=== PATIENT | male | born 1945 | race Two or more races ===

== ENCOUNTER 2020-06-18 10:41 | Outpatient (CLI) | payer OTHER | END 2020-06-18 10:59 | disposition HB | LOC: MRI 10:41 → NUCLEAR 11:00 | DX: R05 Cough (principal); K21.9 Gastro-esophageal reflux disease without esophagitis; E78.2 Mixed hyperlipidemia; N39.3 Stress incontinence (female) (male); M54.42 Lumbago with sciatica, left side; M54.41 Lumbago with sciatica, right side; R26.89 Other abnormalities of gait and mobility; G47.33 Obstructive sleep apnea (adult) (pediatric); Z68.32 Body mass index [BMI] 32.0-32.9, adult ==

== ENCOUNTER 2020-06-18 11:01 | Outpatient (CLI) | payer OTHER | END 2020-06-18 11:06 | disposition home or self-care (01) | LOC: NUCLEAR 11:01 | PROVIDERS: ATTEND Internal Medicine | DX: I70.213 Atherosclerosis of native arteries of extremities with intermittent claudication, bilateral legs (principal) ==

== ENCOUNTER 2020-07-31 10:43 | Outpatient (CLI) | payer OTHER | END 2020-07-31 10:45 | disposition home or self-care (01) | LOC: NUCLEAR 10:43 | PROVIDERS: ATTEND Internal Medicine | DX: E78.2 Mixed hyperlipidemia (principal); I83.893 Varicose veins of bilateral lower extremities with other complications; I87.2 Venous insufficiency (chronic) (peripheral) ==

== ENCOUNTER 2021-06-26 10:58 | Outpatient (CLI) | payer OTHER | END 2021-06-26 11:06 | disposition home or self-care (01) | LOC: RAD 10:58 | PROVIDERS: ATTEND Internal Medicine | DX: R05.9 Cough, unspecified (principal); M54.42 Lumbago with sciatica, left side; M54.41 Lumbago with sciatica, right side ==

== ENCOUNTER 2021-07-05 10:26 | Outpatient (CLI) | payer OTHER | END 2021-07-05 10:31 | disposition home or self-care (01) | LOC: TOM 10:26 | PROVIDERS: ATTEND Internal Medicine | DX: M54.42 Lumbago with sciatica, left side (principal); M54.41 Lumbago with sciatica, right side; M54.16 Radiculopathy, lumbar region ==

== ENCOUNTER 2021-09-05 12:15 | Outpatient (CLI) | payer OTHER | END 2021-09-05 12:21 | disposition home or self-care (01) | LOC: TOM 12:15 | PROVIDERS: ATTEND Physical Medicine & Rehabilitation | DX: G81.94 Hemiplegia, unspecified affecting left nondominant side (principal); M54.2 Cervicalgia ==

== ENCOUNTER 2024-04-13 05:22 | Inpatient (IN) | payer OTHER ==
[2024-04-13] VITALS (8 sets, daily range): BP systolic 81–157; BP diastolic 40–76; O2SAT 92–100
[~2024-04-13] VITALS: Ht 162.6 cm; Wt 72.6 kg
--- NOTE | 2024-04-13 05:33 | NUR ---
SE RECIBE PTE ALERTA ACOMPANADO DE FAMILIAR LA CUAL REFIERE TRAER A PTE POR DIFICULTAD RESPIRATORIA Y CAIDA DESDE PHYLLIS. SE MIDEN S/V A PTE, SE REALIZA EKG. PTE SE OBSERVA CON RESPIRACIONES ABDOMINALES CON CN A 3LTS COLOCADA POR PERSONAL PARAMEDICO. PTE SE UBICA EN UNIDAD DE CRITICO Y SE CONECTA A MONITOR CARDIACO.
[2024-04-13] MEDS ORDERED: ALBUTEROL SULFATE 3 ML/2.5 MG AMPUL.NEB IH ONE (05:49)
[2024-04-13] MEDS ORDERED: METHYLPREDNISOLONE SOD SUCC 125 MG VIAL ONE (05:49)
[2024-04-13] MEDS ORDERED: METHYLPREDNISOLONE SOD SUCC 125 MG VIAL IV STA (05:54)
[2024-04-13] MEDS ORDERED: ALBUTEROL SULFATE 3 ML/2.5 MG AMPUL.NEB IH SCH ×2 (06:00→09:00)
[2024-04-13] MEDS ORDERED: CEFTRIAXONE SODIUM 1,000 MG VIAL IV STA (06:02)
[2024-04-13] MEDS ORDERED: AZITHROMYCIN 500 MG VIAL IV STA (06:02)
[2024-04-13] MEDS ORDERED: CEFTRIAXONE SODIUM 1,000 MG VIAL ONE (06:06)
[2024-04-13] MEDS ORDERED: AZITHROMYCIN 500 MG VIAL IV ONE (06:06)
[2024-04-13 06:23] LABS: ABG PH 7.443 (7.35-7.45); ABG PO2 93.4 mmHg (80-100); ABG pCO2 41.9 mmHg (35-45); BASE EXCESS 3.6 mmol/l; SaO2 97.6 %; Tco2 29.3 mmol/l; allen test SATISFACTORY; o2 32 %; puncture site RADIAL LEFT
--- NOTE | 2024-04-13 06:32 | NUR ---
SE RECIBE MASCULINO ALERTA A CAMA #3, SE CONECTA A MONITOR CARDIACO Y OXIMETRIA DE PULSO CONTINUA. SE OBSERVA MASCULINO CON RESPIRACIONES LABORIOSAS Y UTILIZANDO MUSCULOS ACCESORIO, SE COLOCA C/N 3 LT/MIN. VENOPUNCION X2 LT/RT ARM PATENTES JOSE ROBERTO DE EDEMA Y ERITEMA BAJANDO IV FLUIDS POR IV PUMP. SE ADMINISTRAN MEDICAMENTOS [facility] ORDEN MEDICA Y BAJO MEDIDAS ASEPTICAS. FAMILIAR VERBALIZA QUE NO DESEA QUE PTE SE ENTUBE. ORIENTA A FEMINA Y LA MISMA FIRMA DIRECTRICES ANTICIPADAS, SE DOCUMENTA EN SISTEMA. SE COLOCA CARD BAJO MEDIDAS ASEPTICAS Y ESTERILES BAJANDO A GRVEDAD, SE OBSERVA ORINA AMARILLO OSCURO. PERSONAL DE TERAPIA RESPIRATORIA ADMINSITR MEDICAMENTOS [facility] ORDEN MEDICA.
[2024-04-13 06:47] LABS: HEMATOCRIT 32.5 % (39.0-48.0); MEAN CELL VOLUME 101.3 fL (80.0-100.00); MEAN CORPUSCULAR HEMOGLOBIN 34.2 pg (27.00-32.0); MEAN CORPUSCULAR HGB CONC 33.7 g/dl (32.0-36.0); PLATELET COUNT 255 K/uL (150-450); RED BLOOD COUNT 3.21 M/uL (4.00-6.00); RED CELL DISTRIBUTION WIDTH 14.7 % (11.5-14.5)
[2024-04-13 06:48] LABS: INR 1.34; PARTIAL THROMBOPLASTIN TIME 24.5 SECONDS (22.0-34.0); PROTHROMBIN TIME 14.3 SECONDS (9.0-11.5)
[2024-04-13 06:56] LABS: ALBUMIN 1.8 gm/dL (3.4-5.0); BILIRUBIN TOTAL 1.03 mg/dL (0.3-1.2); CALCIUM 10.3 mg/dL (8.5-10.1); CREATININE SERUM 1.13 mg/dL (0.70-1.30); GFR 62.44; GLOBULINA 9.9 G/DL (2.4-3.5); POTASSIUM 3.47 mEq/L (3.5-5.1)
[2024-04-13 06:57] LABS: TOTAL PROTEIN 11.7 gm/dL (6.4-8.2)
--- NOTE | 2024-04-13 07:29 | NUR ---
SE RECIBE PACIENTE EN ICU-2 POR LILLY FRIEDMAN, CONECTADO A MONITOR CARDIACO Y OXIMETRIA
[2024-04-13] MEDS ORDERED: LEVALBUTEROL HCL 0.63 MG/3 ML SOLUTION IH ONE (07:57)
[2024-04-13 08:49] LABS: URINE APPEARANCE Cloudy; URINE BILIRRUBIN Small (NEGATIVE); URINE BLOOD Large; URINE COLOR Dark Yellow; URINE GLUCOSE Negative (NEGATIVE); URINE KETONE Negative (NEGATIVE); URINE LEUKOCYTE Moderate; URINE NITRATE Positive
[2024-04-13 08:52] LABS: URINE BACTERIA 5720.9 uL (0.0-1933); URINE CAST 17.97 uL (0.0-1.40); URINE EPITHELIAL CELLS 15.3 uL (0.0-38.8); URINE RBC 135.9 uL (0.0-20.8); URINE WBC 1324.5 uL (0.0-23.2)
--- NOTE | 2024-04-13 08:52 | NUR ---
8:20AM SE RECIBE PACIENTE MASCULINO DE 78 ANOS D EEDAD UBICADA EN UNIDAD DE CRITICO EN CAMA NESSA #3 CON BARANDAS ELAVADAS Y CABECERA A 45 GRADOS. PACIENTE AL MOMENTO ALERTA, CONCIENTE Y CONFUSO AL MOMENBTO. SE ENCUENTRA EN COMPANIA DE FAMILIAR. PACIENTE CONECTADO A MONITOR CARDIACO Y OXIMETRIA DE PULSO CONTINUA. PACIENTE CON DX DE CA DE HUES[place], AL MOMENTO CON SOB, VITALES SE OBSERVA ESTABLES Y SE MANTIENE ESTABLE DENTRO DE LOPEZ CONDICION DELICADA DE AR. ENTREGADO POR RN- DELMIS DIAGNOSTIC SALES SPECIALIST Y RN- PALMER QUIENES ORIENTAN SOBRE EL JESUS. PACIENTE ASISTIDO POR CANULA DE OXIGENO A 3 LITROS, EXTREMIDADES SUPERIORES SIN EDEMA AL MOMENTO MANTIENE VENOPUNCIONE EN MANO DERECHA CON ANGIO #20 FIJO EN POSICION Y NO SE OBSERVA EDEMA O ERITEMA. ADEMAS CUENTA CON SALIN LOCK EN ANTEBRAZO JANENE Y NBO TIENE LIQUIDOS BAJANDO. AREA DEL PECHO Y ESPALDA NO SE OBSERVAN HALLAZGOS SIGNIFICATIVOS Y NO TIENE ULCERA EN AREA DEL SACRO. ABDOMEN AL MOMENTO SE PALPA BLANDO Y DEPRESIBLE AL TACTO, MANTIENE INSERCION DE CARD CATHER NESSA #16 FIJO EN POSICION Y BAJANDO A GRAVEDAD, SE OBSERVA EN BOLSA COLECTORA DE CARD 100ML DE EGRESO DE ORINA COLOR AMARILLO KRISTINE. EXTREMIDADES INFERIORES CON EDEMA LEVE, Y NO SE OBSERVA HALLAZGOS SIGNIFICATIVOS. PACIENTE SE MANTIENE EN OBSERVACION CARLOS Y EN ESPERA DE CONSULTA SER CONTESTADA.
[2024-04-13] MEDS ORDERED: LEVALBUTEROL HCL 0.63 MG/3 ML SOLUTION IH SCH (09:00)
[2024-04-13 09:08] LABS: URINE PROTEIN 100 (NEGATIVE)
[2024-04-13 09:09] LABS: URINE CRYSTALS FEW /HPF
--- NOTE | 2024-04-13 09:21 | NUR ---
8:20AM PACIENTE CUENTA CON ORDEN DE DIRESTRICES ANTICIPADAS DNR +DNI.
[2024-04-13] MEDS ORDERED: FUROsemide 20 MG/2 ML VIAL IV SCH (09:22)
[2024-04-13] MEDS ORDERED: GUAIFENESIN 200 MG/10 ML BLIST.PACK PO SCH (09:23)
[2024-04-13] MEDS ORDERED: Cyanocobalamin/Mecobalamin 1 TAB.SL SL SCH (09:24)
[2024-04-13] MEDS ORDERED: ALBUMIN HUMAN-25 0.25GM/ML (50ML) VIAL IV SCH (09:25)
[2024-04-13] MEDS ORDERED: LOSARTAN POTASSIUM 50 MG TABLET PO SCH (09:25)
[2024-04-13] MEDS ORDERED: ENOXAPARIN SODIUM 40 MG/0.4 ML SYRINGE SUBCUTANEO SCH (09:25)
[2024-04-13] MEDS ORDERED: AMINO ACIDS/PROTEIN HYDROLYS 30 ML BLIST.PACK PO SCH (09:25)
[2024-04-13] MEDS ORDERED: ASPIRIN 81 MG TAB.CHEW PO SCH (09:26)
[2024-04-13] MEDS ORDERED: PANTOPRAZOLE SODIUM 40 MG/VIAL VIAL IV PUSH SCH (09:26)
[2024-04-13] MEDS ORDERED: TICAGRELOR 90 MG TABLET PO SCH (09:26)
[2024-04-13] MEDS ORDERED: BUDESONIDE 0.5 MG/2 ML AMPUL.NEB IH SCH (09:27)
[2024-04-13] MEDS ORDERED: IPRATROPIUM BROMIDE 0.5 MG/2.5 ML AMPUL.NEB IH SCH (09:27)
[2024-04-13] MEDS ORDERED: NITROGLYCERIN IN 5 % DEXTROSE 250 ML IV SCH (09:30)
[2024-04-13] MEDS ORDERED: ACETAMINOPHEN 500 MG GEL..CAP PO PRN (09:30)
[2024-04-13] MEDS ORDERED: ALBUMIN HUMAN 100 ML VIAL IV SCH (09:40)
[2024-04-13] MEDS ORDERED: TICAGRELOR 90 MG TABLET PO ONE (10:12)
[2024-04-13] MEDS ORDERED: NITROGLYCERIN IN 5 % DEXTROSE 50 MG/250 ML BOTTLE IV ONE (10:13)
[2024-04-13] MEDS ORDERED: ENOXAPARIN SODIUM 40 MG/0.4 ML SYRINGE SUBCUTANEO ONE (10:13)
[2024-04-13] MEDS ORDERED: GUAIFENESIN 200 MG/10 ML BLIST.PACK PO ONE (10:13)
[2024-04-13] MEDS ORDERED: FUROsemide 20 MG/2 ML VIAL ONE (10:13)
[2024-04-13] MEDS ORDERED: DEXAMETHASONE SODIUM PHOSPHATE 4 MG/ML VIAL IV ONE (11:15)
[2024-04-13] MEDS ORDERED: MANNITOL 0.2 GM/ML (500ML) IV.SOLN IV ONE (11:15)
[2024-04-13] MEDS ORDERED: 0.9 % SODIUM CHLORIDE 1,000 ML IV SCH (11:15)
[2024-04-13] MEDS ORDERED: DEXAMETHASONE SODIUM PHOSPHATE 4 MG/ML VIAL ONE (11:17)
[2024-04-13] MEDS ORDERED: CEFTRIAXONE SODIUM 1,000 MG in DEXTROSE 5 % IN WATER 100 ML IV SCH (21:00)
[2024-04-14] VITALS (8 sets, daily range): BP systolic 134–160; BP diastolic 58–85; O2SAT 93–99
[2024-04-14 06:15] LABS: HEMATOCRIT 30.5 % (39.0-48.0); HEMOGLOBIN 10.3 g/dL (13-16.00); MEAN CELL VOLUME 100.7 fL (80.0-100.00); MEAN CORPUSCULAR HEMOGLOBIN 33.9 pg (27.00-32.0); MEAN CORPUSCULAR HGB CONC 33.7 g/dl (32.0-36.0); PLATELET COUNT 249 K/uL (150-450); RED BLOOD COUNT 3.03 M/uL (4.00-6.00); RED CELL DISTRIBUTION WIDTH 14.5 % (11.5-14.5)
[2024-04-14 07:06] LABS: ALBUMIN 2.1 gm/dL (3.4-5.0); ANION GAP 2 (10.0-20.0); BLOOD UREA NITROGEN 23 mg/dL (7-18); BUN CREA RATIO 21 (7.0-25.0); CALCIUM 10.4 mg/dL (8.5-10.1); CARBON DIOXIDE 35 mEq/L (21-32); CHLORIDE 112 mmol/L (98-107); CHOL HDL RATIO 3.8 (0-5.0); CHOLESTEROL 114 mg/dL (0-200); CREATININE SERUM 1.12 mg/dL (0.70-1.30); GFR 63.08; GLUCOSE FASTING 128 mg/dL (65-100); HDL 30 mg/dl (40-60); LDL 66 mg/dl (0-130); LIPASE 16 U/L (13-75); OSMOLALITY SERUM 296 MOSM/KG (275-295); PHOSPHOROUS 3.2 mg/dL (2.5-4.9); POTASSIUM 3.29 mEq/L (3.5-5.1); SODIUM 146 mmol/L (136-145); T4 FREE 1.21 NG/ML (0.76-1.46); TOTAL IRON BINDING CAPACITY 92 ug/dl (250-450); TRIGLYCERIDES 89 mg/dL (0-150); VLDL 17 (0-39)
[2024-04-14] MEDS ORDERED: AZITHROMYCIN 500 MG VIAL IV ONE (08:15)
[2024-04-14] MEDS ORDERED: AZITHROMYCIN 500 MG VIAL IV SCH (09:00)
[2024-04-14] MEDS ORDERED: ENOXAPARIN SODIUM 40 MG/0.4 ML SYRINGE SUBCUTANEO SCH (09:00)
[2024-04-14] MEDS ORDERED: FUROsemide 20 MG/2 ML VIAL IV SCH (09:00)
[2024-04-14 10:44] LABS: ob NEGATIVE (NEGATIVE)
[2024-04-14] MEDS ORDERED: MEROPENEM 500 MG/VIAL VIAL IV SCH (14:00)
[2024-04-14] MEDS ORDERED: FUROsemide 20 MG/2 ML VIAL IV NR (21:00)
[2024-04-14] MEDS ORDERED: ALBUMIN HUMAN 100 ML VIAL IV SCH (21:00)
[2024-04-15] VITALS (8 sets, daily range): BP systolic 145–182; BP diastolic 65–98; O2SAT 95–100
[2024-04-15] MEDS ORDERED: METOPROLOL SUCCINATE 50 MG TAB.SR.24H PO SCH (09:00)
[2024-04-15] MEDS ORDERED: LOSARTAN POTASSIUM 100 MG TABLET PO SCH (09:00)
[2024-04-15] MEDS ORDERED: FUROsemide 20 MG/2 ML VIAL IV PRN ×2 (09:00)
[2024-04-15] MEDS ORDERED: HALOPERIDOL LACTATE 5 MG/ML AMPUL IM PRN (14:15)
[2024-04-15] MEDS ORDERED: CEFTRIAXONE SODIUM 2,000 MG in 0.9 % SODIUM CHLORIDE 100 ML IV SCH (17:00)
[2024-04-15] MEDS ORDERED: ENALAPRILAT DIHYDRATE 1.25 MG/ML VIAL IV SCH (18:00)
[2024-04-15 18:11] LABS: HEMATOCRIT 30.9 % (39.0-48.0); HEMOGLOBIN 10.2 g/dL (13-16.00); MEAN CELL VOLUME 100.2 fL (80.0-100.00); PLATELET COUNT 229 K/uL (150-450); RED BLOOD COUNT 3.09 M/uL (4.00-6.00); RED CELL DISTRIBUTION WIDTH 14.8 % (11.5-14.5)
[2024-04-15 18:30] LABS: ALBUMIN 2.6 gm/dL (3.4-5.0); BILIRUBIN TOTAL 0.94 mg/dL (0.3-1.2); CALCIUM 9.6 mg/dL (8.5-10.1); CREATININE SERUM 0.83 mg/dL (0.70-1.30); GFR 89.14; POTASSIUM 3.04 mEq/L (3.5-5.1)
[2024-04-15 20:44] LABS: TOTAL PROTEIN 10.6 gm/dL (6.4-8.2)
[2024-04-16] VITALS (7 sets, daily range): BP systolic 160–182; BP diastolic 73–85; O2SAT 96–100
[2024-04-16] MEDS ORDERED: DEXTROSE 5 %-0.45 % SOD CHLORD 1,000 ML IV SCH (11:30)
[2024-04-16] MEDS ORDERED: MAGNESIUM SULFATE 50% 1,000 MG/2 ML VIAL IM ONE (11:30)
[2024-04-16 13:58] LABS: CALCIUM 9.5 mg/dL (8.5-10.1); CREATININE SERUM 0.72 mg/dL (0.70-1.30); GFR 105.04; POTASSIUM 3.25 mEq/L (3.5-5.1)
[2024-04-16] MEDS ORDERED: POTASSIUM CHLORIDE IN WATER 40 MEQ/100 ML PIGGYBAG IV SCH (17:00)
[2024-04-16] MEDS ORDERED: FAMOtidine 40 MG TABLET PO SCH (21:00)
[2024-04-17] VITALS (10 sets, daily range): BP systolic 120–156; BP diastolic 70–86; O2SAT 90–100
[2024-04-17 07:31] LABS: BLOOD UREA NITROGEN 25 mg/dL (7-18); BUN CREA RATIO 32 (7.0-25.0); CALCIUM 9.1 mg/dL (8.5-10.1); CARBON DIOXIDE 34 mEq/L (21-32); CREATININE SERUM 0.78 mg/dL (0.70-1.30); GFR 95.77; GLUCOSE FASTING 130 mg/dL (65-100)
[2024-04-17 07:49] LABS: CHLORIDE 118 mmol/L (98-107); OSMOLALITY SERUM 297 MOSM/KG (275-295); POTASSIUM 3.28 mEq/L (3.5-5.1); SODIUM 146 mmol/L (136-145)
[2024-04-17] MEDS ORDERED: MAGNESIUM SULFATE/D5W 1GM/100ML PIGGYBAG IV NR (13:30)
[2024-04-17 15:50] LABS: HEMATOCRIT 29.3 % (39.0-48.0); HEMOGLOBIN 9.8 g/dL (13-16.00); MEAN CELL VOLUME 102.4 fL (80.0-100.00); MEAN CORPUSCULAR HEMOGLOBIN 34.1 pg (27.00-32.0); MEAN CORPUSCULAR HGB CONC 33.3 g/dl (32.0-36.0); PLATELET COUNT 178 K/uL (150-450); RED BLOOD COUNT 2.87 M/uL (4.00-6.00); RED CELL DISTRIBUTION WIDTH 14.9 % (11.5-14.5)
[2024-04-17] MEDS ORDERED: POTASSIUM CHLORIDE IN WATER 40 MEQ/100 ML PIGGYBAG IV SCH (17:00)
[2024-04-18] VITALS (11 sets, daily range): BP systolic 125–175; BP diastolic 74–89; O2SAT 97–100
[2024-04-18 07:32] LABS: ALBUMIN 2.3 gm/dL (3.4-5.0); BILIRUBIN TOTAL 0.74 mg/dL (0.3-1.2); CALCIUM 9.2 mg/dL (8.5-10.1); CREATININE SERUM 0.85 mg/dL (0.70-1.30); GFR 86.73; GLOBULINA 7.3 G/DL (2.4-3.5); POTASSIUM 3.92 mEq/L (3.5-5.1); TOTAL PROTEIN 9.6 gm/dL (6.4-8.2)
[2024-04-19] VITALS (7 sets, daily range): BP systolic 139–178; BP diastolic 83–85; O2SAT 97–100
[2024-04-19 08:30] LABS: CALCIUM 8.5 mg/dL (8.5-10.1); CREATININE SERUM 0.61 mg/dL (0.70-1.30); GFR 127.18; POTASSIUM 4.79 mEq/L (3.5-5.1)
[2024-04-19 12:52] LABS: PH,URINE 5.5 (5.0-8.0); URINE APPEARANCE Cloudy; URINE BILIRRUBIN Negative (NEGATIVE); URINE BLOOD Large; URINE COLOR Yellow; URINE GLUCOSE Negative (NEGATIVE); URINE KETONE Negative (NEGATIVE); URINE LEUKOCYTE Moderate; URINE NITRATE Negative; URINE PROTEIN 30 (NEGATIVE)
[2024-04-19 12:55] LABS: URINE BACTERIA 78.3 uL (0.0-1933); URINE CAST 8.24 uL (0.0-1.40); URINE EPITHELIAL CELLS 27.5 uL (0.0-38.8); URINE RBC 2900.9 uL (0.0-20.8); URINE WBC 254.9 uL (0.0-23.2)
[2024-04-19] MEDS ORDERED: hydrALAZINE HCL 50 MG TABLET PO SCH (13:00)
[2024-04-20] VITALS (8 sets, daily range): BP systolic 132–149; BP diastolic 64–80; O2SAT 97–100
[2024-04-20 23:08] LABS: HEMATOCRIT 27.5 % (39.0-48.0); HEMOGLOBIN 9.3 g/dL (13-16.00); MEAN CELL VOLUME 100.3 fL (80.0-100.00); MEAN CORPUSCULAR HEMOGLOBIN 33.9 pg (27.00-32.0); MEAN CORPUSCULAR HGB CONC 33.9 g/dl (32.0-36.0); PLATELET COUNT 179 K/uL (150-450); RED BLOOD COUNT 2.74 M/uL (4.00-6.00); RED CELL DISTRIBUTION WIDTH 14.6 % (11.5-14.5)
[2024-04-20 23:30] LABS: ALBUMIN 1.8 gm/dL (3.4-5.0); BILIRUBIN TOTAL 0.46 mg/dL (0.3-1.2); CREATININE SERUM 0.67 mg/dL (0.70-1.30); GFR 114.13; GLOBULINA 6.7 G/DL (2.4-3.5); POTASSIUM 3.78 mEq/L (3.5-5.1); TOTAL PROTEIN 8.5 gm/dL (6.4-8.2)
[2024-04-21] VITALS (9 sets, daily range): BP systolic 111–139; BP diastolic 65–80; O2SAT 96–99
[2024-04-22] VITALS (10 sets, daily range): BP systolic 119–135; BP diastolic 60–84; O2SAT 90–100
[2024-04-22] MEDS ORDERED: FUROsemide 20 MG/2 ML VIAL IV STA (07:56)
[2024-04-22] MEDS ORDERED: IPRATROPIUM BROMIDE 0.5 MG/2.5 ML AMPUL.NEB IH SCH (08:00)
[2024-04-22 10:36] LABS: ABG PH 7.392 (7.35-7.45); ABG PO2 67.6 mmHg (80-100); ABG pCO2 52.8 mmHg (35-45); BICARBONATE 31.4 mmol/l (23-25); SaO2 93.3 %; allen test SATISFACTORY; puncture site RADIAL RIGHT
[2024-04-22 10:37] LABS: o2 100 %
[2024-04-22 13:02] LABS: ABG PH 7.377 (7.35-7.45)
[2024-04-22 13:03] LABS: ABG PO2 119.8 mmHg (80-100); ABG pCO2 56.6 mmHg (35-45); BASE EXCESS 5.6 mmol/l; BICARBONATE 32.5 mmol/l (23-25); SaO2 98.6 %; Tco2 34.3 mmol/l; allen test SATISFACTORY; puncture site RADIAL RIGHT
[2024-04-22 13:04] LABS: o2 100 %
[2024-04-22] MEDS ORDERED: FUROsemide 20 MG/2 ML VIAL IV SCH ×2 (13:12→17:00)
[2024-04-22] MEDS ORDERED: DEXAMETHASONE SODIUM PHOSP/PF 10 MG/ML VIAL IV STA (13:29)
[2024-04-22] MEDS ORDERED: DOPamine HCL IN DEXTROSE 5 % 250 ML IV SCH (14:30)
[2024-04-22 15:15] LABS: ALBUMIN 1.7 gm/dL (3.4-5.0); CALCIUM 9.4 mg/dL (8.5-10.1); PHOSPHOROUS 4.5 mg/dL (2.5-4.9)
[2024-04-22] MEDS ORDERED: ALBUMIN HUMAN 100 ML VIAL IV SCH (17:00)
[2024-04-22] MEDS ORDERED: DEXAMETHASONE SODIUM PHOSPHATE 4 MG/ML VIAL IV SCH (21:00)
[2024-04-23] VITALS (10 sets, daily range): BP systolic 131–159; BP diastolic 65–74; O2SAT 98–100
[2024-04-23 00:21] LABS: TP PLEURAL FLUID 4.2 g/dl
[2024-04-23 01:00] LABS: MONONUCLEAR 75 %; PLEURAL FLUID APPEARANCE HAZY; PLEURAL FLUID COLOR YELLOW; POLYMORPHONUCLEAR 25 %
[2024-04-24] VITALS (8 sets, daily range): BP systolic 108–141; BP diastolic 47–70; O2SAT 90–100
[2024-04-24 08:18] LABS: MEAN CELL VOLUME 99.3 fL (80.0-100.00); MEAN CORPUSCULAR HGB CONC 33.8 g/dl (32.0-36.0); PLATELET COUNT 201 K/uL (150-450); RED BLOOD COUNT 2.37 M/uL (4.00-6.00); RED CELL DISTRIBUTION WIDTH 14.9 % (11.5-14.5)
[2024-04-24 08:22] LABS: MEAN CORPUSCULAR HEMOGLOBIN 33.7 pg (27.00-32.0)
[2024-04-24 08:23] LABS: HEMATOCRIT 23.6 % (39.0-48.0)
[2024-04-24 08:33] LABS: ALBUMIN 2.3 gm/dL (3.4-5.0); CALCIUM 9.8 mg/dL (8.5-10.1); CREATININE SERUM 2.61 mg/dL (0.70-1.30); GFR 23.76; PHOSPHOROUS 4.7 mg/dL (2.5-4.9); POTASSIUM 4.33 mEq/L (3.5-5.1)
[2024-04-24] MEDS ORDERED: FUROsemide 20 MG/2 ML VIAL IV PRN (11:45)
[2024-04-24 11:48] LABS: ABG PH 7.397 (7.35-7.45); ABG PO2 98.6 mmHg (80-100); ABG pCO2 57.2 mmHg (35-45); BASE EXCESS 7.5 mmol/l; BICARBONATE 34.4 mmol/l (23-25); SaO2 97.7 %; Tco2 36.2 mmol/l; allen test SATISFACTORY; puncture site RADIAL RIGHT
[2024-04-24 11:49] LABS: o2 50 %
[2024-04-25 00:35] VITALS: O2SAT 99
[2024-04-26 10:32] VITALS: O2SAT 97
[2024-04-26 12:09] LABS: VITAMIN D 1 25 31.7 pg/mL (24.8-81.5)
[2024-04-26 13:59] VITALS: O2SAT 100
[2024-04-26 14:36] LABS: ABG PH 7.373 (7.35-7.45)
[2024-04-26 14:40] LABS: ABG pCO2 61.8 mmHg (35-45)
[2024-04-26 14:41] LABS: ABG PO2 135.2 mmHg (80-100); BASE EXCESS 7.5 mmol/l; BICARBONATE 35.1 mmol/l (23-25); allen test SATISFACTORY; o2 50 %; puncture site RADIAL RIGHT
[2024-04-26 16:56] VITALS: O2SAT 97
[2024-04-26 17:51] VITALS: BP 95/52; O2SAT 98
[2024-04-26 22:14] LABS: HEMATOCRIT 31.2 % (39.0-48.0); HEMOGLOBIN 10.5 g/dL (13-16.00); MEAN CELL VOLUME 97.1 fL (80.0-100.00); MEAN CORPUSCULAR HEMOGLOBIN 32.6 pg (27.00-32.0); MEAN CORPUSCULAR HGB CONC 33.6 g/dl (32.0-36.0); PLATELET COUNT 234 K/uL (150-450); RED BLOOD COUNT 3.21 M/uL (4.00-6.00)
[2024-04-26 22:20] VITALS: O2SAT 97
[2024-04-26 22:43] LABS: ALBUMIN 1.9 gm/dL (3.4-5.0); BILIRUBIN TOTAL 0.35 mg/dL (0.3-1.2); CALCIUM 8.9 mg/dL (8.5-10.1); CREATININE SERUM 3.3 mg/dL (0.70-1.30); GFR 18.13; GLOBULINA 6.2 G/DL (2.4-3.5); POTASSIUM 5.68 mEq/L (3.5-5.1); TOTAL PROTEIN 8.1 gm/dL (6.4-8.2)
[2024-04-27] VITALS (7 sets, daily range): BP systolic 114–130; BP diastolic 50–70; O2SAT 96–98
[2024-04-27 11:32] LABS: ABG PH 7.373 (7.35-7.45); ABG PO2 102.9 mmHg (80-100); ABG pCO2 62.3 mmHg (35-45); BASE EXCESS 7.8 mmol/l; BICARBONATE 35.5 mmol/l (23-25); SaO2 97.8 %; Tco2 37.4 mmol/l
[2024-04-27 11:33] LABS: allen test SATISFACTORY; o2 50 %; puncture site RADIAL RIGHT
[2024-04-27] MEDS ORDERED: 0.9 % SODIUM CHLORIDE 1,000 ML IV SCH (15:45)
[2024-04-28 00:22] VITALS: O2SAT 97
[2024-04-28 00:41] VITALS: BP 128/79; O2SAT 99
[2024-04-28 06:08] VITALS: O2SAT 96
[2024-04-28 09:19] VITALS: O2SAT 90
[2024-04-28 09:29] VITALS: BP 171/64; O2SAT 99
[2024-04-28 17:27] VITALS: BP 132/63; O2SAT 98
[2024-04-29] VITALS (8 sets, daily range): BP systolic 116–155; BP diastolic 64–69; O2SAT 98–99
[2024-04-29 07:51] LABS: BILIRUBIN TOTAL 0.39 mg/dL (0.3-1.2); CALCIUM 8.9 mg/dL (8.5-10.1); CREATININE SERUM 2.75 mg/dL (0.70-1.30); GFR 22.37; GLOBULINA 6.1 G/DL (2.4-3.5); TOTAL PROTEIN 8.1 gm/dL (6.4-8.2)
[2024-04-29 08:19] LABS: POTASSIUM 6.25 mEq/L (3.5-5.1)
[2024-04-29] MEDS ORDERED: INSULIN REGULAR, HUMAN 1,000 UNIT/10 ML UNITS IV NR (12:00)
[2024-04-29] MEDS ORDERED: DEXTROSE 50 % IN WATER 0.5 G/ML VIAL IV NR (12:00)
[2024-04-29] MEDS ORDERED: SODIUM POLYSTYRENE SULFONATE 30G/8 TSP NGT SCH (12:00)
[2024-04-29 14:38] LABS: ABG PH 7.354 (7.35-7.45)
[2024-04-29 14:39] LABS: ABG PO2 120.9 mmHg (80-100); ABG pCO2 68.8 mmHg (35-45); BICARBONATE 37.5 mmol/l (23-25); SaO2 98.6 %; Tco2 39.6 mmol/l; allen test SATISFACTORY; o2 50 %; puncture site RADIAL RIGHT
[2024-04-29] MEDS ORDERED: LACTULOSE 20 G/30 ML BLIST.PACK PO NR (17:00)
[2024-04-29] MEDS ORDERED: SODIUM POLYSTYRENE SULFONATE 15 G/4 TSP TSP PO STA (20:11)
[2024-04-30] VITALS (9 sets, daily range): BP systolic 126–148; BP diastolic 63–71; O2SAT 97–100
[2024-04-30 08:10] LABS: ALBUMIN 1.9 gm/dL (3.4-5.0); BILIRUBIN TOTAL 0.34 mg/dL (0.3-1.2); CALCIUM 8.6 mg/dL (8.5-10.1); CREATININE SERUM 2.5 mg/dL (0.70-1.30); GFR 24.97; GLOBULINA 5.6 G/DL (2.4-3.5); MAGNESIUM 2.8 mg/dL (1.8-2.4); PHOSPHOROUS 4.6 mg/dL (2.5-4.9); POTASSIUM 5.73 mEq/L (3.5-5.1); TOTAL PROTEIN 7.5 gm/dL (6.4-8.2)
[2024-04-30] MEDS ORDERED: SODIUM POLYSTYRENE SULFONATE 15 G/4 TSP TSP PO SCH (09:00)
[2024-04-30 09:05] LABS: PROSTATIC SPECIFIC ANTIGEN 6.34 NG/ML (0.010-4.00)
[2024-04-30 11:32] LABS: ABG PH 7.353 (7.35-7.45)
[2024-04-30 11:34] LABS: ABG pCO2 73.9 mmHg (35-45)
[2024-04-30 11:35] LABS: BASE EXCESS 11.1 mmol/l; BICARBONATE 40.2 mmol/l (23-25); SaO2 98.4 %; Tco2 42.4 mmol/l; allen test SATISFACTORY; o2 50 %; puncture site RADIAL RIGHT
[2024-04-30] MEDS ORDERED: CEFTRIAXONE SODIUM 2,000 MG in 0.9 % SODIUM CHLORIDE 100 ML IV SCH (18:10)
[2024-05-01] VITALS (9 sets, daily range): BP systolic 125–144; BP diastolic 60–65; O2SAT 90–100
[2024-05-01 07:53] LABS: PH,URINE 5.5 (5.0-8.0); URINE APPEARANCE Cloudy; URINE BILIRRUBIN Negative (NEGATIVE); URINE BLOOD Large; URINE COLOR Yellow; URINE GLUCOSE Negative (NEGATIVE); URINE KETONE Negative (NEGATIVE); URINE LEUKOCYTE Moderate; URINE NITRATE Negative; URINE UROBILINOGEN 0.2 E.U./dl
[2024-05-01 07:55] LABS: HEMATOCRIT 28.9 % (39.0-48.0); HEMOGLOBIN 9.9 g/dL (13-16.00); MEAN CELL VOLUME 97.6 fL (80.0-100.00); MEAN CORPUSCULAR HEMOGLOBIN 33.5 pg (27.00-32.0); MEAN CORPUSCULAR HGB CONC 34.3 g/dl (32.0-36.0); PLATELET COUNT 211 K/uL (150-450); RED BLOOD COUNT 2.96 M/uL (4.00-6.00); RED CELL DISTRIBUTION WIDTH 15.2 % (11.5-14.5)
[2024-05-01 07:55] LABS: URINE BACTERIA 171.3 uL (0.0-1933); URINE EPITHELIAL CELLS 8.2 uL (0.0-38.8); URINE RBC 4582.4 uL (0.0-20.8); URINE WBC 190.9 uL (0.0-23.2)
[2024-05-01 08:59] LABS: URINE PROTEIN 100 (NEGATIVE); URINE YEAST MANY /hpf
[2024-05-01] MEDS ORDERED: ACETAZOLAMIDE SODIUM IV SCH (12:42)
[2024-05-01] MEDS ORDERED: SODIUM CHLORIDE 0.9% IV SCH (12:42)
[2024-05-01 14:12] LABS: ABG PO2 134.3 mmHg (80-100); ABG pCO2 75.6 mmHg (35-45)
[2024-05-01 14:13] LABS: BASE EXCESS 12.5 mmol/l; BICARBONATE 41.7 mmol/l (23-25); Tco2 44.1 mmol/l; allen test SATISFACTORY; puncture site RADIAL RIGHT
[2024-05-01 14:15] LABS: o2 50 %
[2024-05-01] MEDS ORDERED: ACETAZOLAMIDE SODIUM 500 MG VIAL IV SCH (17:00)
[2024-05-02] VITALS (8 sets, daily range): BP systolic 106–130; BP diastolic 60–69; O2SAT 97–99
[2024-05-02 07:42] LABS: ALBUMIN 1.9 gm/dL (3.4-5.0); BILIRUBIN TOTAL 0.31 mg/dL (0.3-1.2); CALCIUM 8.4 mg/dL (8.5-10.1); CREATININE SERUM 2.3 mg/dL (0.70-1.30); GFR 27.5; GLOBULINA 5.4 G/DL (2.4-3.5); POTASSIUM 4.99 mEq/L (3.5-5.1); TOTAL PROTEIN 7.3 gm/dL (6.4-8.2)
[2024-05-02] MEDS ORDERED: CEFTRIAXONE SODIUM 2,000 MG VIAL ONE (08:03)
[2024-05-02 16:39] LABS: ABG PH 7.373 (7.35-7.45); ABG PO2 138.9 mmHg (80-100); ABG pCO2 77.3 mmHg (35-45); BASE EXCESS 14.5 mmol/l; SaO2 99.1 %
[2024-05-02 16:40] LABS: Tco2 46.4 mmol/l; allen test SATISFACTORY; o2 50 %; puncture site RADIAL RIGHT
[2024-05-03] VITALS (8 sets, daily range): BP systolic 112–133; BP diastolic 61–87; O2SAT 93–99
[2024-05-03] MEDS ORDERED: CEFTRIAXONE SODIUM 2,000 MG VIAL ONE (08:18)
[2024-05-04] VITALS (10 sets, daily range): BP systolic 97–123; BP diastolic 41–71; O2SAT 94–99
[2024-05-04 08:40] LABS: HEMATOCRIT 27.3 % (39.0-48.0); MEAN CELL VOLUME 101.8 fL (80.0-100.00); MEAN CORPUSCULAR HEMOGLOBIN 33.4 pg (27.00-32.0); MEAN CORPUSCULAR HGB CONC 32.8 g/dl (32.0-36.0); PLATELET COUNT 155 K/uL (150-450); RED BLOOD COUNT 2.69 M/uL (4.00-6.00); RED CELL DISTRIBUTION WIDTH 15.9 % (11.5-14.5)
[2024-05-04 09:31] LABS: ALBUMIN 1.9 gm/dL (3.4-5.0); BILIRUBIN TOTAL 0.38 mg/dL (0.3-1.2); CALCIUM 8.2 mg/dL (8.5-10.1); CREATININE SERUM 2.35 mg/dL (0.70-1.30); GFR 26.82; POTASSIUM 4.05 mEq/L (3.5-5.1); TOTAL PROTEIN 6.9 gm/dL (6.4-8.2)
[2024-05-04] MEDS ORDERED: ACETAZOLAMIDE 250 MG TABLET PO SCH (11:20)
[2024-05-04] MEDS ORDERED: DEXTROSE 5 %-0.45 % SOD CHLORD 1,000 ML IV SCH (11:30)
[2024-05-04] MEDS ORDERED: DEXAMETHASONE 4 MG TABLET PO SCH (12:00)
[2024-05-04] MEDS ORDERED: ALBUMIN HUMAN-25 0.25GM/ML (50ML) VIAL IV SCH (13:00)
[2024-05-05] VITALS (8 sets, daily range): BP systolic 102–118; BP diastolic 53–69; O2SAT 90–100
[2024-05-05 07:47] LABS: ob POSITIVE (NEGATIVE)
[2024-05-05 08:07] LABS: CALCIUM 8.2 mg/dL (8.5-10.1); CREATININE SERUM 2.84 mg/dL (0.70-1.30); GFR 21.56; POTASSIUM 3.83 mEq/L (3.5-5.1)
[2024-05-05] MEDS ORDERED: PANTOPRAZOLE SODIUM 80 MG IV SCH (09:45)
[2024-05-05] MEDS ORDERED: PANTOPRAZOLE SODIUM 80 MG in 0.9 % SODIUM CHLORIDE 100 ML IV SCH (10:00)
[2024-05-05 12:57] LABS: HEMATOCRIT 24.4 % (39.0-48.0); MEAN CELL VOLUME 101.5 fL (80.0-100.00); MEAN CORPUSCULAR HGB CONC 33.2 g/dl (32.0-36.0); RED BLOOD COUNT 2.41 M/uL (4.00-6.00); RED CELL DISTRIBUTION WIDTH 15.8 % (11.5-14.5)
[2024-05-05 13:01] LABS: HEMOGLOBIN 8.1 g/dL (13-16.00); MEAN CORPUSCULAR HEMOGLOBIN 33.6 pg (27.00-32.0); PLATELET COUNT 121 K/uL (150-450)
[2024-05-05 15:44] LABS: ABG PH 7.325 (7.35-7.45)
[2024-05-05 15:45] LABS: ABG PO2 112.1 mmHg (80-100); ABG pCO2 80.1 mmHg (35-45); BASE EXCESS 10.9 mmol/l; BICARBONATE 40.8 mmol/l (23-25); SaO2 98.1 %; Tco2 43.3 mmol/l
[2024-05-05 15:46] LABS: allen test SATISFACTORY; o2 50 %; puncture site RADIAL RIGHT
[2024-05-05] MEDS ORDERED: DEXAMETHASONE SODIUM PHOSPHATE 4 MG/ML VIAL IV SCH (17:00)
[2024-05-06] VITALS (8 sets, daily range): BP systolic 140–145; BP diastolic 63–64; O2SAT 0–99
[2024-05-06 06:55] LABS: CALCIUM 8.5 mg/dL (8.5-10.1); CREATININE SERUM 2.63 mg/dL (0.70-1.30); GFR 23.55; POTASSIUM 3.91 mEq/L (3.5-5.1)
[2024-05-06 12:42] LABS: ABG PH 7.304 (7.35-7.45); ABG pCO2 87.8 mmHg (35-45)
[2024-05-06 12:43] LABS: ABG PO2 103.2 mmHg (80-100); BASE EXCESS 11.9 mmol/l; BICARBONATE 42.6 mmol/l (23-25); SaO2 97.4 %; Tco2 45.3 mmol/l; allen test SATISFACTORY; o2 50 %; puncture site RADIAL RIGHT
== END 2024-05-06 22:28 | disposition expired | DRG 871 ==
LOC: ER 05:22 → MEDJ 13:30 → SEC-K 13:30 → MEDJ 13:39
PROVIDERS: General Practice; Internal Medicine; Internal Medicine Infectious Disease; Internal Medicine Nephrology; Radiology Vascular & Interventional Radiology; Student in an Organized Health Care Education/Training Program; ADMIT Internal Medicine; ATTEND Internal Medicine
PROC: BW21ZZZ Computerized Tomography (CT Scan) of Abdomen and Pelvis (ICD-10-PCS; 2024-04-13)
PROC: B020ZZZ Computerized Tomography (CT Scan) of Brain (ICD-10-PCS; 2024-04-13)
PROC: BW24ZZZ Computerized Tomography (CT Scan) of Chest and Abdomen (ICD-10-PCS; 2024-04-13)
PROC: B24BYZZ Ultrasonography of Heart with Aorta using Other Contrast (ICD-10-PCS; 2024-04-13)
PROC: 4A12X4Z Monitoring of Cardiac Electrical Activity, External Approach (ICD-10-PCS; 2024-04-13)
PROC: B030ZZZ Magnetic Resonance Imaging (MRI) of Brain (ICD-10-PCS; 2024-04-21)
PROC: 0W993ZX Drainage of Right Pleural Cavity, Percutaneous Approach, Diagnostic (ICD-10-PCS; 2024-04-22)
PROC: 02HV33Z Insertion of Infusion Device into Superior Vena Cava, Percutaneous Approach (ICD-10-PCS; 2024-04-24)
PROC: 30243N1 Transfusion of Nonautologous Red Blood Cells into Central Vein, Percutaneous Approach (ICD-10-PCS; 2024-04-26)
PROC: 5A09557 Assistance with Respiratory Ventilation, Greater than 96 Consecutive Hours, Continuous Positive Airway Pressure (ICD-10-PCS; principal; 2024-04-28)
DX: A41.9 Sepsis, unspecified organism (principal); I21.A1 Myocardial infarction type 2; J96.90 Respiratory failure, unspecified, unspecified whether with hypoxia or hypercapnia; N39.0 Urinary tract infection, site not specified; J90 Pleural effusion, not elsewhere classified; C79.9 Secondary malignant neoplasm of unspecified site; C79.51 Secondary malignant neoplasm of bone; K92.2 Gastrointestinal hemorrhage, unspecified; I11.0 Hypertensive heart disease with heart failure; I50.9 Heart failure, unspecified; D72.829 Elevated white blood cell count, unspecified; R41.82 Altered mental status, unspecified; D64.9 Anemia, unspecified; Z66 Do not resuscitate; G30.9 Alzheimer's disease, unspecified; F02.80 Dementia in other diseases classified elsewhere, unspecified severity, without behavioral disturbance, psychotic disturbance, mood disturbance, and anxiety
CPT/HCPCS: 70553